=== PATIENT | female | born 1965 | race Caucasian/White ===

== ENCOUNTER 2018-05-25 14:34 | Observation (INO) | payer OTHER, SELFPAY ==
[2018-05-25] VITALS (12 sets, daily range): BP systolic 111–146; BP diastolic 63–97; PULSE 70–88; RESP 13–19; TEMP 36.4–37.1; O2SAT 94–99; BMI 28.5; BMI 28.0
--- NOTE | 2018-05-25 14:55 | EKG12_ITS ---
Test Reason : CP Blood Pressure : / mmHG Vent. Rate : 081 BPM Atrial Rate : 081 BPM P-R Int : 172 ms QRS Dur : 092 ms QT Int : 384 ms P-R-T Axes : 050 -21 053 degrees QTc Int : 446 ms Normal sinus rhythm Normal ECG Confirmed by EVA PATEL, CHRIS ([id number]), state editor ASHA ASHTON ([id number] on 05/28/2018 10:51:04 AM Referred By: RYAN/NIGEL Confirmed By:CHRIS VELASQUEZ MD
--- NOTE | 2018-05-25 15:00 | RAD_ITS ---
STUDY: X-RAY CHEST REASON FOR EXAM: Female, 52 years old. Chest pain TECHNIQUE: Single view of the chest was obtained COMPARISON: None. FINDINGS: No lung consolidation, pleural effusion or pneumothorax. Mild perihilar reticular opacities. Osseous structures demonstrate no acute abnormalities. Degenerative changes in the thoracic spine. Slightly elevated right hemidiaphragm. IMPRESSION: No evidence for focal airspace disease. Electronically Signed: Sharath Booker, at 15:59 EDT Tel , Service support , RAD/Chest 1 View (Portable)
[2018-05-25 15:06] LABS: Absolute Lymphocyte Count 2.83 X10^3/ul (0.83-4.51); Absolute Neutrophil Count 6.2 X10^3/uL (2.0-7.7); Basophil# 0.05 X10^3/uL; Basophil% 0.5 % (0-1); Eosinophil# 0.16 X10^3/uL; Eosinophils% 1.6 % (0-5); Hematocrit 44.8 % (37-47); Hemoglobin 15.4 g/dl (12.0-15.0); Lymphocyte # 2.83 X10^3/ul (4.0); Lymphocyte % 27.6 % (19-41); Mean Corp Hgb Conc 34.4 g/gl (32-36); Mean Corpuscular Hgb 29.6 pg (27.0-32.0); Mean Platelet Vol. 8.7 fl (6.2-12.0); Monocyte% 9.8 % (0-10); Neutrophil # 6.17 X10^3/uL (2.7-7.7); Neutrophil % 60.2 % (47-70); Platelet Count 379 K/mm3 (150-450); RBC Distribution Width SD 41.2 fl (35.1-43.9); Red Blood Count 5.21 M/mm3 (4.2-5.4); White Blood Count 10.2 K/mm3 (4.4-11.0)
[2018-05-25 15:13] LABS: POSITIVE COUNT NO; POSITIVE DIFFERENTIAL NO; POSITIVE MORPHOLOGY NO
[2018-05-25 15:18] LABS: D-Dimer Quantitative (DVT/PE) < 0.27 FEU/ug/m (0.27-0.49)
[2018-05-25 15:22] LABS: Anion Gap 11 (5-15); BUN 14 mg/dL (7-18); BUN/Creat Ratio 17.6 RATIO (10-20); Calcium,Total 9.1 mg/dL (8.5-10.1); Chloride 105 mmol/L (98-107); Creatinine, Serum 0.79 mg/dL (0.55-1.02); EST Glomerular Filtration Rate 81 mL/min (>60); Est Glom Filt Rate - Afr Amer 97 mL/min (>60); Estimated Creatinine Clearance 81.01 ml/min; Glucose 134 mg/dL (74-106); Potassium 3.3 mmol/L (3.5-5.1); Sodium Level 141 mmol/L (136-145)
--- NOTE | 2018-05-25 16:31 | ED.DCSUM_ITS ---
- ER Visit Summary Date of Service: 05/25/18 Chief Complaint: Chest pain History of Present Illness: The patient is a 52 F presenting with chest pain. She states she started having upper back pain last night. Around 10 AM this morning she developed chest pressure and aching sensation. She states it is worsened with deep breathing and with exertion. She has associated nausea, dyspnea, lightheadedness. The pain has been intermittent today. She has a history of hypertension, borderline diabetes, hypercholesterolemia. Her mother had an DC at age 60. She is not a smoker. No PE/DVT risk factors. Physical Examination: Vitals are stable. Patient is afebrile. Alert no acute distress. HEENT exam is unremarkable. Neck is supple. Lungs are clear and equal bilaterally. Heart is regular rate and rhythm. Abdomen is soft nontender nondistended. Extremities are unremarkable. Skin is warm and dry. No focal neurologic deficit. Remainder of exam is unremarkable. Emergency Department Course and Treatment: Patient has an aspirin allergy. EKG is sinus rate of 81 with no acute ischemic changes. Chest x-ray shows no acute process. CBC, chemistries show potassium 3.3, glucose 134. Troponin is negative. D-dimer negative. On reevaluation, patient is chest pain-free. Due to her pain between her shoulder blades, CTA chest was obtained and shows no demonstrated pulmonary embolism or arterial dissection. Will discuss with the hospitalist for observation. Disposition: Observation Impression: Chest pain This note was generated with [employer] dictation software. It may contain incorrect words, spelling, and punctuation that were not noted in review of the chart prior to signing ED Disposition - Plan for ED Patient: Chief Complaint: Chest Pain Referrals: Isabela Sidhu MD [Primary Care Provider] -
--- NOTE | 2018-05-25 16:50 | CT_ITS ---
STUDY: CTA CHEST REASON FOR EXAM: Female, 52 years old. Sternal chest pain. RADIATION DOSAGE (If Supplied By Facility): CTDIvol = ( 13.73 ) mGy, DLP = ( 496.55 ) mGycm TECHNIQUE: The examination was performed with the intravenous administration of 100 ml of Isovue 370 contrast material. Post-processing of the angiographic images was performed, with multiplanar reformation and 3D reconstruction. Individualized dose optimization techniques were used for this CT. COMPARISON: None. FINDINGS: There is suboptimal enhancement of the main pulmonary artery and right and left pulmonary arteries. Normal enhancement of the bilateral peripheral pulmonary arteries. There is no demonstrated pulmonary embolism. There is atherosclerotic calcification of the aortic arch. There is no demonstrated aortic dissection. Normal heart and pericardium. Normal mediastinum. Normal hilar regions. Normal visualized trachea and bronchi. The lungs are well expanded. Normal pulmonary parenchyma. Normal pleura. Normal chest wall structures. There are degenerative changes of thoracic spine. Limited images of the upper abdomen demonstrate fatty infiltration of the liver. CT/CTA Chest W/WO Contrast IMPRESSION: No demonstrated pulmonary embolism or arterial dissection. Atherosclerosis. Fatty infiltration of the liver. Electronically Signed: Justa Colon MD at 18:06 EDT Tel , Service support ,
--- NOTE | 2018-05-25 18:37 | PCM.HP.STD ---
Problem List (1) Chest pain Status: Acute Qualifiers: Chest pain type: other chest pain Qualified Code(s): R07.89 - Other chest pain; R07.8 - Other chest pain (2) Globus sensation Status: Acute (3) Hypokalemia Status: Acute (4) GERD (gastroesophageal reflux disease) Status: Chronic (5) Hypertension Status: Chronic Qualifiers: Hypertension type: essential hypertension Qualified Code(s): I10 - Essential (primary) hypertension (6) Hyperlipidemia Status: Acute (7) Borderline diabetes Status: Acute History of Present Illness Date of Admission: 05/25/18 Chief Complaint: chest pain, globus sensation The patient is a 52 year old F who reports past medical history of hypertension, borderline diabetes, hyperlipidemia, and family history of coronary artery disease. The patient presents with upper back pain developed last night, followed by substernal chest discomfort, radiating through to the back. She endorses use of caffeine, NSAIDs recently due to upper back pain. She reports history of severe reflux and globus symptoms in the past; reports having had 3 EGDs in the past, is on proton pump inhibitor. She denies rash, or upper extremity neurologic symptoms. She denies bowel or bladder changes, no melena or hematochezia. She reports pain is constant, worse with exertion, and with deep breath. She complains of feeling globus sensation but similar to prior esophagitis episodes. She endorses use of caffeine, chocolate, denies tobacco, peppermint, or alcohol use. She reports aspirin allergy. Emergency department evaluation: Afebrile, heart rate 82, BP 146/93, respirations 17, 99% room air Laboratories to include CBC, BMP acceptable (potassium 3.3, random glucose 134) Troponin is negative EKG is normal D-dimer is negative CTA of chest reveals no demonstrated PE or arterial dissection. The patient is seen and examined. Is currently pain-free. Past Medical History Past Medical History (Chronic Problems): Chronic Problems (Last Updated 05/25/18 @ 19:19 by Melanie Almaguer MD) GERD (gastroesophageal reflux disease) (Chronic) Hypertension (Chronic) Medical History: Medical History (Last Updated 05/25/18 @ 19:19 by Melanie Almaguer MD) Borderline diabetes R73.03 Allergies acetaminophen [From Vicodin] Allergy (Verified 05/25/18 14:37) Swelling aspirin Allergy (Verified 05/25/18 14:37) Swelling erythromycin base Allergy (Verified 05/25/18 14:37) Swelling hydrocodone [From Vicodin] Allergy (Verified 05/25/18 14:37) Swelling povidone-iodine [From Betadine] Allergy (Verified 05/25/18 14:37) Rash soap [From Betadine] Allergy (Verified 05/25/18 14:37) Rash TOPICALS Allergy (Uncoded 05/25/18 14:37) Rash Surgical History: noncontributory Psychiatric History: No pertinent psych hx 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 Smoking Status: Never smoker - *Family History Maternal History Items: Heart Disease Review of Systems HEENT: Reports: Difficulty Swallowing Cardiovascular: Reports: Chest Pain, Chest Pressure Gastrointestinal: Reports: - - globus VTE Information - Inpt Only VTE Present on Admission: No VTE Mechan Device Prophylaxis: SCD's VTE Pharm Prophylaxis ordered?: No Reason prophylaxis not ordered:: Treatment Not Indicated Patient Problems: Active and Suspected Problems (Last Updated 05/25/18 @ 19:19 by Melanie Almaguer MD) Chest pain (Acute) Globus sensation (Acute) Hyperlipidemia (Acute) Borderline diabetes (Acute) Hypokalemia (Acute) Subjective: Pain-free, no acute distress Objective: In no acute distress, pain-free - Physical Exam General: Alert, Oriented x3, Cooperative HEENT: Atraumatic, PERRLA, EOMI Oral: Moist Mucosa Neck: No JVD, Negative Carotid Bruits Lungs: Clear to auscultation Cardiovascular: Regular rate, Regular Rhythm, Normal S1, Normal S2, No murmurs Abdomen: Bowel Sounds Present, Soft, - - Tender epigastrium, no tenderness right upper quadrant Extremities: No edema Skin: No rashes Musculoskeletal: Tenderness - Mild bilateral upper back, parathoracic Neurological: - - Focal Psych/Mental Status: Anxious Vital Signs Temp Pulse Resp BP Pulse Ox 98.7 F 79 13 111/91 H 95 05/25/18 16:24 05/25/18 17:11 05/25/18 17:11 05/25/18 17:11 05/25/18 17:11 Oxygen Flow Rate (L/min) 2 Oxygen Delivery Method Room Air Weight: 182 lb 1.629 oz Body Mass Index (BMI) 28.5 Laboratory Tests Past 24 Hrs 05/25/18 05/25/18 05/25/18 14:55 14:55 14:55 WBC 10.2 RBC 5.21 Hgb 15.4 H Hct 44.8 MCV 86.0 MCH 29.6 MCHC 34.4 RDW 13.0 RDW Differential 41.2 Plt Count 379 MPV 8.7 Immature Gran % (Auto) 0.300 Neut % (Auto) 60.2 Lymph % (Auto) 27.6 [place] % (Auto) 9.8 Eos % (Auto) 1.6 Baso % (Auto) 0.5 Absolute Neuts (auto) 6.2 Absolute Lymphs (auto) 2.83 Total Counted Not Reportable D-Dimer Quant (PE/DVT) < 0.27 L Sodium 141 Potassium 3.3 L Chloride 105 Carbon Dioxide 25.0 Anion Gap 11 BUN 14 Creatinine 0.79 Estim Creat Clear Calc 81.01 Est GFR (MDRD) Af Amer 97 Est GFR (MDRD) Non-Af 81 BUN/Creatinine Ratio 17.6 Glucose 134 H Calcium 9.1 Troponin I < 0.015 Assessment/Plan All Active Problems (Last Updated 05/25/18 @ 19:19 by Melanie Almaguer MD) Chest pain (Acute) Globus sensation (Acute) Hyperlipidemia (Acute) Borderline diabetes (Acute) Hypokalemia (Acute) 82-year-old patient with past medical history of borderline diabetes, hypertension, hyperlipidemia, family history of coronary disease, and aspirin allergy, presents with midsternal constant chest discomfort, radiating to the back, worsened with exertion, and breathing. She is pain-free in ED with a negative evaluation to include troponin, d-dimer, normal EKG and CTA of chest. She reports history of 3 EGDs and was told had ulcerations esophagitis in the past. Primarily her symptoms are globus in nature. She reports 3 prior EGDs and is on PPI twice daily. She endorses use of NSAIDs, caffeine, chocolate, non-smoker, nondrinker. There is no evidence of thromboembolic phenomena, dissection, thoracic radiculopathy, or dermatomal rash on examination. Has no right upper quadrant pain. Denies melena, hematochezia, or urinary symptoms. Heart score = 3 1. Chest pain, with typical and atypical features 2. Globus sensation 3. Hypertension 4. Hypokalemia Chronic issues: Hypertension Borderline diabetes Hyperlipidemia GERD/esophagitis Aspirin allergy Plan: Observe PCU Telemetry monitoring Serial cardiac biomarkers Clear diet Aggressive treatment of GERD -IV PPI drip, Carafate Potassium supplemented Medical management with oxygen, as needed nitrates, started metoprolol 12.5 mg twice daily for blood pressure --hold SBP less than 100, heart rate less than 60 N.p.o. post midnight Lexiscan in AM lipid panel in AM Code Visit OBSV E&M: [id number] Initial observation care L2
--- NOTE | 2018-05-25 18:42 | HP.PCM_ITS ---
Problem List (1) Chest pain Status: Acute Qualifiers: Chest pain type: other chest pain Qualified Code(s): R07.89 - Other chest pain; R07.8 - Other chest pain (2) Globus sensation Status: Acute (3) Hypokalemia Status: Acute (4) GERD (gastroesophageal reflux disease) Status: Chronic (5) Hypertension Status: Chronic Qualifiers: Hypertension type: essential hypertension Qualified Code(s): I10 - Essential (primary) hypertension (6) Hyperlipidemia Status: Acute (7) Borderline diabetes Status: Acute History of Present Illness Date of Admission: 05/25/18 Chief Complaint: chest pain, globus sensation The patient is a 52 year old F who reports past medical history of hypertension , borderline diabetes, hyperlipidemia, and family history of coronary artery disease. The patient presents with upper back pain developed last night, followed by substernal chest discomfort, radiating through to the back. She endorses use of caffeine, NSAIDs recently due to upper back pain. She reports history of severe reflux and globus symptoms in the past; reports having had 3 EGDs in the past, is on proton pump inhibitor. She denies rash, or upper extremity neurologic symptoms. She denies bowel or bladder changes, no melena or hematochezia. She reports pain is constant, worse with exertion, and with deep breath. She complains of feeling globus sensation but similar to prior esophagitis episodes. She endorses use of caffeine, chocolate, denies tobacco, peppermint, or alcohol use. She reports aspirin allergy. Emergency department evaluation: Afebrile, heart rate 82, BP 146/93, respirations 17, 99% room air Laboratories to include CBC, BMP acceptable (potassium 3.3, random glucose 134) Troponin is negative EKG is normal D-dimer is negative CTA of chest reveals no demonstrated PE or arterial dissection. The patient is seen and examined. Is currently pain-free. Past Medical History Past Medical History (Chronic Problems): Chronic Problems (Last Updated 05/25/18 @ 19:19 by Melanie Almaguer MD) GERD (gastroesophageal reflux disease) (Chronic) Hypertension (Chronic) Medical History: Medical History (Last Updated 05/25/18 @ 19:19 by Melanie Almaguer MD) Borderline diabetes R73.03 Allergies acetaminophen [From Vicodin] Allergy (Verified 05/25/18 14:37) Swelling aspirin Allergy (Verified 05/25/18 14:37) Swelling erythromycin base Allergy (Verified 05/25/18 14:37) Swelling hydrocodone [From Vicodin] Allergy (Verified 05/25/18 14:37) Swelling povidone-iodine [From Betadine] Allergy (Verified 05/25/18 14:37) Rash soap [From Betadine] Allergy (Verified 05/25/18 14:37) Rash TOPICALS Allergy (Uncoded 05/25/18 14:37) Rash Surgical History: noncontributory Psychiatric History: No pertinent psych hx 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 Smoking Status: Never smoker - *Family History Maternal History Items: Heart Disease Review of Systems HEENT: Reports: Difficulty Swallowing Cardiovascular: Reports: Chest Pain, Chest Pressure Gastrointestinal: Reports: - - globus VTE Information - Inpt Only VTE Present on Admission: No VTE Mechan Device Prophylaxis: SCD's VTE Pharm Prophylaxis ordered?: No Reason prophylaxis not ordered:: Treatment Not Indicated Patient Problems: Active and Suspected Problems (Last Updated 05/25/18 @ 19:19 by eMlanie Almaguer MD) Chest pain (Acute) Globus sensation (Acute) Hyperlipidemia (Acute) Borderline diabetes (Acute) Hypokalemia (Acute) Subjective: Pain-free, no acute distress Objective: In no acute distress, pain-free - Physical Exam General: Alert, Oriented x3, Cooperative HEENT: Atraumatic, PERRLA, EOMI Oral: Moist Mucosa Neck: No JVD, Negative Carotid Bruits Lungs: Clear to auscultation Cardiovascular: Regular rate, Regular Rhythm, Normal S1, Normal S2, No murmurs Abdomen: Bowel Sounds Present, Soft, - - Tender epigastrium, no tenderness right upper quadrant Extremities: No edema Skin: No rashes Musculoskeletal: Tenderness - Mild bilateral upper back, parathoracic Neurological: - - Focal Psych/Mental Status: Anxious Vital Signs Temp Pulse Resp BP Pulse Ox 98.7 F 79 13 111/91 H 95 05/25/18 16:24 05/25/18 17:11 05/25/18 17:11 05/25/18 17:11 05/25/18 17:11 Oxygen Flow Rate (L/min) 2 Oxygen Delivery Method Room Air Weight: 182 lb 1.629 oz Body Mass Index (BMI) 28.5 Laboratory Tests Past 24 Hrs 05/25/18 05/25/18 05/25/18 14:55 14:55 14:55 WBC 10.2 RBC 5.21 Hgb 15.4 H Hct 44.8 MCV 86.0 MCH 29.6 MCHC 34.4 RDW 13.0 RDW Differential 41.2 Plt Count 379 MPV 8.7 Immature Gran % (Auto) 0.300 Neut % (Auto) 60.2 Lymph % (Auto) 27.6 [place] % (Auto) 9.8 Eos % (Auto) 1.6 Baso % (Auto) 0.5 Absolute Neuts (auto) 6.2 Absolute Lymphs (auto) 2.83 Total Counted Not Reportable D-Dimer Quant (PE/DVT) < 0.27 L Sodium 141 Potassium 3.3 L Chloride 105 Carbon Dioxide 25.0 Anion Gap 11 BUN 14 Creatinine 0.79 Estim Creat Clear Calc 81.01 Est GFR (MDRD) Af Amer 97 Est GFR (MDRD) Non-Af 81 BUN/Creatinine Ratio 17.6 Glucose 134 H Calcium 9.1 Troponin I < 0.015 Assessment/Plan All Active Problems (Last Updated 05/25/18 @ 19:19 by Melanie Almaguer MD) Chest pain (Acute) Globus sensation (Acute) Hyperlipidemia (Acute) Borderline diabetes (Acute) Hypokalemia (Acute) 82-year-old patient with past medical history of borderline diabetes, hypertension, hyperlipidemia, family history of coronary disease, and aspirin allergy, presents with midsternal constant chest discomfort, radiating to the back, worsened with exertion, and breathing. She is pain-free in ED with a negative evaluation to include troponin, d-dimer, normal EKG and CTA of chest. She reports history of 3 EGDs and was told had ulcerations esophagitis in the past. Primarily her symptoms are globus in nature. She reports 3 prior EGDs and is on PPI twice daily. She endorses use of NSAIDs, caffeine, chocolate, non -smoker, nondrinker. There is no evidence of thromboembolic phenomena, dissection, thoracic radiculopathy, or dermatomal rash on examination. Has no right upper quadrant pain. Denies melena, hematochezia, or urinary symptoms. Heart score = 3 1. Chest pain, with typical and atypical features 2. Globus sensation 3. Hypertension 4. Hypokalemia Chronic issues: Hypertension Borderline diabetes Hyperlipidemia GERD/esophagitis Aspirin allergy Plan: Observe PCU Telemetry monitoring Serial cardiac biomarkers Clear diet Aggressive treatment of GERD -IV PPI drip, Carafate Potassium supplemented Medical management with oxygen, as needed nitrates, started metoprolol 12.5 mg twice daily for blood pressure --hold SBP less than 100, heart rate less than 60 N.p.o. post midnight Lexiscan in AM lipid panel in AM Code Visit OBSV E&M: [id number] Initial observation care L2
--- NOTE | 2018-05-25 19:18 | NURSING ---
Called ED cut plug packerKindra ASHER at this time to confirm Pt okay to come to PCU.
--- NOTE | 2018-05-25 19:50 | EKG12_ITS ---
Test Reason : ADM EKG Blood Pressure : / mmHG Vent. Rate : 075 BPM Atrial Rate : 075 BPM P-R Int : 186 ms QRS Dur : 094 ms QT Int : 406 ms P-R-T Axes : 046 -28 055 degrees QTc Int : 453 ms Normal sinus rhythm Normal ECG Confirmed by EVA PATEL, CHRIS ([id number]), editor school photograph ASHA ASHTON ([id number]) on 05/28/2018 11:30:20 AM Referred By: VINCENT Confirmed By:CHRIS VELASQUEZ MD
[2018-05-25] MEDS: Mag Hydrox/Al Hydrox/Simeth 30 ML UDC PO (20:47)
[2018-05-25] MEDS: 0.9% NaCl Peripheral Flush Adult/Peds IV (21:21)
[2018-05-25] MEDS: Sucralfate 1 GM Tablet PO (22:26)
[2018-05-25] MEDS: Famotidine 20 MG Tablet PO (22:26)
[2018-05-25] MEDS: Metoprolol Tartrate 25 MG Tablet 12.5 MG PO (22:30)
[2018-05-25 23:01] LABS: Bedside Glucose 169 mg/dL (70-110)
[2018-05-26 02:03] VITALS: BP 113/69; PULSE 66; RESP 16; TEMP 36.6; O2SAT 95
[2018-05-26 02:27] LABS: Absolute Lymphocyte Count 3.22 X10^3/ul (0.83-4.51); Absolute Neutrophil Count 4.3 X10^3/uL (2.0-7.7); Basophil# 0.05 X10^3/uL; Basophil% 0.6 % (0-1); Eosinophil# 0.21 X10^3/uL; Eosinophils% 2.4 % (0-5); Hematocrit 43.3 % (37-47); Hemoglobin 14.9 g/dl (12.0-15.0); Lymphocyte # 3.22 X10^3/ul (4.0); Lymphocyte % 36.5 % (19-41); Mean Corp Hgb Conc 34.4 g/gl (32-36); Mean Corpuscular Hgb 29.6 pg (27.0-32.0); Mean Corpuscular Volume 85.9 fL (81-99); Mean Platelet Vol. 8.5 fl (6.2-12.0); Monocyte# 1.01 X10^3/uL; Monocyte% 11.5 % (0-10); Neutrophil # 4.27 X10^3/uL (2.7-7.7); Neutrophil % 48.4 % (47-70); Platelet Count 431 K/mm3 (150-450); RBC Distribution Width CV 13.2 % (11.6-14.6); RBC Distribution Width SD 40.7 fl (35.1-43.9); Red Blood Count 5.04 M/mm3 (4.2-5.4); White Blood Count 8.8 K/mm3 (4.4-11.0)
[2018-05-26 02:28] LABS: POSITIVE COUNT NO; POSITIVE DIFFERENTIAL NO; POSITIVE MORPHOLOGY NO
[2018-05-26 03:06] VITALS: PULSE 65
[2018-05-26 03:31] LABS: International Normalized Ratio 1.1; Prothrombin Time (Protime)PT. 13.9 SECONDS (11.7-14.9)
[2018-05-26 03:32] LABS: Anion Gap 11 (5-15); BUN 14 mg/dL (7-18); BUN/Creat Ratio 18.9 RATIO (10-20); Calcium,Total 9.1 mg/dL (8.5-10.1); Chloride 104 mmol/L (98-107); Cholesterol 172 mg/dL (200); Creatinine, Serum 0.74 mg/dL (0.55-1.02); EST Glomerular Filtration Rate 87 mL/min (>60); Est Glom Filt Rate - Afr Amer 106 mL/min (>60); Estimated Creatinine Clearance 86.48 ml/min; Glucose 114 mg/dL (74-106); High Density Lipoprotein 28 mg/dL; Partial Thromboplast Time 28.8 Seconds (24.1-36.2); Potassium 3.6 mmol/L (3.5-5.1); Sodium Level 141 mmol/L (136-145); Triglycerides 222 mg/dL; Very Low Density Lipoprotein 44 mg/dL (5-40)
--- NOTE | 2018-05-26 05:55 | EKG12_ITS ---
Test Reason : AM EKG Blood Pressure : / mmHG Vent. Rate : 065 BPM Atrial Rate : 065 BPM P-R Int : 202 ms QRS Dur : 096 ms QT Int : 406 ms P-R-T Axes : 048 -22 052 degrees QTc Int : 422 ms Normal sinus rhythm Normal ECG Confirmed by EVA PATEL, CHRIS ([id number]), food editor ASHA ASHTON ([id number]) on 05/28/2018 11:26:48 AM Referred By: DR KAUR Confirmed By:CHRIS VELASQUEZ MD
[2018-05-26 06:10] VITALS: BP 102/70; PULSE 68; RESP 14; TEMP 36.6; O2SAT 93
[2018-05-26] MEDS: Sucralfate 1 GM Tablet PO ×2 (06:12→10:57)
[2018-05-26 06:45] LABS: Bedside Glucose 115 mg/dL (70-110)
[2018-05-26 09:23] VITALS: BP 103/60; PULSE 87; RESP 16; TEMP 36.8; O2SAT 93
--- NOTE | 2018-05-26 09:33 | STRESSREP ---
Stress Test Report Date: 05/26/2018 Procedure: Exercise tolerance test/imaging study Indications: Chest pain Consent: Per the patient Procedure: The patient exercised on a Elmer protocol for 7 minutes and 10 seconds completing Stage II and 1 minute and 10 seconds of Stage III achieving a peak heart rate of 117 bpm (69 % predicted maximal heart rate) with a peak blood pressure 158/74 mmHg and a peak MET capacity of 8 METs. The baseline ECG demonstrated normal sinus rhythm. The peak exercise ECG demonstrated somatic/motion artifact with no obvious ECG changes. [There were no cardiac dysrhythmias pretest, during exercise, or recovery]. The functional capacity was considered average. There was [no complaint of chest discomfort during exercise or recovery]. The examination was discontinued secondary to leg discomfort. Impression: 1. Technically adequate (percent predicted maximal heart rate greater than 85%) exercise tolerance test 2. Peak exercise ECG demonstrated somatic/motion artifact with no obvious ECG changes 3. There were no cardiac dysrhythmias pretest, during exercise, or recovery. 4. Pharmacologic (Regadenoson) evaluation pending Procedure: Pharmacologic stress nuclear imaging study Consent: Per the patient Procedure: The baseline ECG demonstrated normal sinus rhythm. The peak pharmacologic ECG demonstrated no obvious ECG changes. [There were no cardiac dysrhythmias pretest, during pharmacologic infusion, or recovery]. The patient noted chest discomfort during the evaluation with spontaneous resolution in recovery. The examination was discontinued secondary to completion of protocol. Impression: 1. Pharmacologic (Regadenoson) evaluation 2. Peak pharmacologic ECG with no obvious ECG changes. 3. There were no cardiac dysrhythmias pretest, during pharmacologic infusion, or recovery 4. Nuclear images pending Myocardial perfusion imaging study: Technique: The patient was injected with 12 millicuries of technetium 99m Cardiolite and subsequently rest SPECT Cardiolite nuclear imaging was obtained in the horizontal long, vertical long, and short axis views. The patient exercised on a Elmer protocol for 7 minutes and 10 seconds completing Stage II and 1 minute and 10 seconds of Stage III achieving a peak heart rate of 117 bpm (69 % predicted maximal heart rate) with a peak blood pressure 158/74 mmHg and a peak MET capacity of 8 METs. The patient underwent pharmacologic (Regadenoson) evaluation with a peak heart rate of 113 beats per minute (67 predicted maximal heart rate) and a peak blood pressure of 128/80 mmHg. The patient was injected with 36 millicuries of technetium 99m Cardiolite and subsequently stress SPECT Cardiolite nuclear imaging was obtained in the horizontal long, vertical long, and short axis views. A gated Cardiolite study at peak stress was obtained. Interpretation: Rest and stress SPECT Cardiolite nuclear imaging status post realignment, normalization, and attenuation correction demonstrate at rest a small area of subtle diminished tracer uptake near the apical segments which appears to improve and/or normalize following stress. [There is end systolic thickening and brightening]. [The gated Cardiolite study demonstrates myocardial thickening and inward wall motion]. The reported LVEF is 81%. Impression: 1. Rest and stress SPECT currently nuclear imaging demonstrate a small area of subtle diminished tracer uptake near the apical segments at rest which appear to improve and/or normalize following stress appearing compatible with shifting soft tissue attenuation/artifact with no myocardial perfusion changes consider diagnostic for associated stress-induced myocardial ischemia or previous myocardial injury/infarction. 2. The gated Cardiolite study reports an LVEF of 81 %. This note was generated with [employer] software. It may contain incorrect words, spelling, and punctuation that were not noted in checking the note before signing.
[2018-05-26] MEDS: Famotidine 20 MG Tablet PO (09:35)
--- NOTE | 2018-05-26 10:04 | DCINST_ITS ---
- Discharge Diagnoses Current Active Problems: Current Active and Chronic Problems (Last Updated 05/25/18 @ 19:19 by Melanie Almaguer MD) Chest pain (Acute) Globus sensation (Acute) GERD (gastroesophageal reflux disease) (Chronic) Hypertension (Chronic) Hyperlipidemia (Acute) Borderline diabetes (Acute) Hypokalemia (Acute) You will use the following diet at home:: Cardiac Your food should be the consistency of: Regular Discharge Activity: Return to Normal Activity Weight Bearing Status: Full weight bearing Call your doctor if you observe: Fever of 101 or Higher, Shortness of breath, Dizziness, Fainting spells, Chest pain, Increased palpitations (irregular heartbeat), Uncontrolled pain Instructions: Discharge Instructions for Gastroesophageal Reflux Disease (GERD) Allergies/Adverse Reactions: Allergies acetaminophen [From Vicodin] Allergy (Verified 05/25/18 14:37) Swelling aspirin Allergy (Verified 05/25/18 14:37) Swelling erythromycin base Allergy (Verified 05/25/18 14:37) Swelling hydrocodone [From Vicodin] Allergy (Verified 05/25/18 14:37) Swelling povidone-iodine [From Betadine] Allergy (Verified 05/25/18 20:06) Swelling soap [From Betadine] Allergy (Verified 05/25/18 20:06) Swelling TOPICALS Allergy (Uncoded 05/25/18 14:37) Rash Medications to take at Discharge Fenofibrate [Tricor] 145 mg PO DAILY 05/25/18 Fluoxetine [Prozac] 20 mg PO QHS 05/25/18 Hydrochlorothiazide [Hctz] 25 mg PO DAILY 05/25/18 Loratadine [Claritin] 10 mg PO QHS 05/25/18 Omeprazole [Prilosec] 20 mg PO BID 05/25/18 Simvastatin 5 mg PO QHS 05/25/18 Sucralfate [Carafate] 1 gm PO 4X/DAY #90 udc 05/26/18 The following prescriptions were given: Sucralfate [Carafate] 1 gm PO 4X/DAY #90 udc Primary Care Physician: Isabela Sidhu MD [Primary Care Provider] - Please follow up with your Primary Care Physician in: 2-4 weeks. Test Results: Test results from this visit will be discussed in further detail at your follow- up appointment, if applicable.
[2018-05-26 11:06] LABS: Bedside Glucose 135 mg/dL (70-110)
[2018-05-26 11:39] VITALS: BP 119/71; PULSE 78; RESP 18; TEMP 37.1; O2SAT 95
[2018-05-26 11:42] VITALS: BP 119/71; PULSE 78
[2018-05-26] MEDS: Metoprolol Tartrate 25 MG Tablet 12.5 MG PO (11:42)
--- NOTE | 2018-05-26 15:38 | PCM.DC.SUM ---
Discharge Date and Diagnosis Date of Admission: 05/25/18 Date of Discharge: 05/26/18 - Primary Discharge Diagnosis Chest pain, ACS ruled out, attributed to GERD - Secondary Discharge Diagnosis Chronic Problems (Last Updated 05/25/18 @ 19:19 by Melanie Almaguer MD) GERD (gastroesophageal reflux disease) (Chronic) Hypertension (Chronic) Hospital Course and Treatment Imaging Results: Clinical Impression(s) from Imaging Studies Chest X-Ray 05/25/18 15:00 Chest CTA 05/25/18 16:50 IMPRESSION: No demonstrated pulmonary embolism or arterial dissection. Atherosclerosis. Fatty infiltration of the liver. Electronically Signed: Justa Colon MD at 18:06 EDT Tel , Service support , Operations: None Procedures: EKG, Stress test Summary of Care Provided: Patient seen and examined on the day of discharge and appeared to be stable to be discharged home. She denies any more chest pain. Her vital signs are stable. - Physical Exam General: Alert, Oriented x3, Cooperative, No apparent distress. HEENT: Atraumatic, PERRLA, EOMI. Neck: Supple, No JVD, Negative Carotid Bruits, Trachea Midline, Thyroid Normal. Lungs: Clear to auscultation, Normal air movement, No rhonchi, No wheeze, No rales. Cardiovascular: Regular rate, Regular Rhythm, Normal S1, Normal S2, PMI Normal. Abdomen: Bowel Sounds Present, Soft, Non Tender, Non-Distended, No Hepato-splenomegaly. Extremities: No clubbing, No cyanosis, No edema Skin: No rashes, No breakdown Neurological: Neuro grossly intact Vital Signs are stable. Hospital course: The patient is a 52 year old F admitted because of chest pain for evaluation. She has significant history of GERD and gastritis and she had upper EGD 3 times in the last few years and she was told that she has severe GERD and gastric erosions. Her EKG revealed no evidence of acute ischemic changes. Troponin was negative ?3. Chest x-ray showed no acute findings. CTA chest showed no evidence for acute PE or dissection. She underwent nuclear stress test that as negative without evidence of stress-induced myocardial ischemia. ACS is ruled out. Her symptoms attributed to GERD. Patient has been on omeprazole, started on Carafate. Patient discharged home in a stable medical condition, continued on Prilosec, started on Carafate 4 times daily, continued on her chronic home medication without any changes, recommended follow-up with PCP in 2-4 weeks and recommended to keep following up with GI as outpatient. Discharge Activity: Return to Normal Activity Weight Bearing Status: Full weight bearing Call your doctor if you observe: Fever of 101 or Higher, Shortness of breath, Dizziness, Fainting spells, Chest pain, Increased palpitations (irregular heartbeat), Uncontrolled pain Home Medications: Medications to take at Discharge Fenofibrate [Tricor] 145 mg PO DAILY 05/25/18 Fluoxetine [Prozac] 20 mg PO QHS 05/25/18 Hydrochlorothiazide [Hctz] 25 mg PO DAILY 05/25/18 Loratadine [Claritin] 10 mg PO QHS 05/25/18 Omeprazole [Prilosec] 20 mg PO BID 05/25/18 Simvastatin 5 mg PO QHS 05/25/18 Sucralfate [Carafate] 1 gm PO 4X/DAY #90 udc 05/26/18 Following Prescrptions Were Given to Patient: Sucralfate [Carafate] 1 gm PO 4X/DAY #90 udc Primary Care Physician: Isabela Sidhu MD [Primary Care Provider] - Please follow up with your Primary Care Physician in: 2-4 weeks. Patient Instructions: Discharge Instructions for Gastroesophageal Reflux Disease (GERD) Disposition: Home Minutes spent on discharge:: 25 Patient Condition:: Stable Medical Necessity - Tobacco Use Smoking Status: Never smoker Meaningful Use Info Meaningful Use Diagnoses (Choose all that apply): None applicable Code Visit OBSV E&M: 80613 Observation care discharge
--- NOTE | 2018-05-26 15:42 | DS.PCM_ITS ---
Discharge Date and Diagnosis Date of Admission: 05/25/18 Date of Discharge: 05/26/18 - Primary Discharge Diagnosis Chest pain, ACS ruled out, attributed to GERD - Secondary Discharge Diagnosis Chronic Problems (Last Updated 05/25/18 @ 19:19 by Melanie Almaguer MD) GERD (gastroesophageal reflux disease) (Chronic) Hypertension (Chronic) Hospital Course and Treatment Imaging Results: Clinical Impression(s) from Imaging Studies Chest X-Ray 05/25/18 15:00 Chest CTA 05/25/18 16:50 IMPRESSION: No demonstrated pulmonary embolism or arterial dissection. Atherosclerosis. Fatty infiltration of the liver. Electronically Signed: Justa Colon MD at 18:06 EDT Tel , Service support , Operations: None Procedures: EKG, Stress test Summary of Care Provided: Patient seen and examined on the day of discharge and appeared to be stable to be discharged home. She denies any more chest pain. Her vital signs are stable. - Physical Exam General: Alert, Oriented x3, Cooperative, No apparent distress. HEENT: Atraumatic, PERRLA, EOMI. Neck: Supple, No JVD, Negative Carotid Bruits, Trachea Midline, Thyroid Normal. Lungs: Clear to auscultation, Normal air movement, No rhonchi, No wheeze, No rales. Cardiovascular: Regular rate, Regular Rhythm, Normal S1, Normal S2, PMI Normal. Abdomen: Bowel Sounds Present, Soft, Non Tender, Non-Distended, No Hepato- splenomegaly. Extremities: No clubbing, No cyanosis, No edema Skin: No rashes, No breakdown Neurological: Neuro grossly intact Vital Signs are stable. Hospital course: The patient is a 52 year old F admitted because of chest pain for evaluation. She has significant history of GERD and gastritis and she had upper EGD 3 times in the last few years and she was told that she has severe GERD and gastric erosions. Her EKG revealed no evidence of acute ischemic changes. Troponin was negative ?3. Chest x-ray showed no acute findings. CTA chest showed no evidence for acute PE or dissection. She underwent nuclear stress test that as negative without evidence of stress-induced myocardial ischemia. ACS is ruled out. Her symptoms attributed to GERD. Patient has been on omeprazole, started on Carafate. Patient discharged home in a stable medical condition, continued on Prilosec, started on Carafate 4 times daily, continued on her chronic home medication without any changes, recommended follow-up with PCP in 2-4 weeks and recommended to keep following up with GI as outpatient. Discharge Activity: Return to Normal Activity Weight Bearing Status: Full weight bearing Call your doctor if you observe: Fever of 101 or Higher, Shortness of breath, Dizziness, Fainting spells, Chest pain, Increased palpitations (irregular heartbeat), Uncontrolled pain Home Medications: Medications to take at Discharge Fenofibrate [Tricor] 145 mg PO DAILY 05/25/18 Fluoxetine [Prozac] 20 mg PO QHS 05/25/18 Hydrochlorothiazide [Hctz] 25 mg PO DAILY 05/25/18 Loratadine [Claritin] 10 mg PO QHS 05/25/18 Omeprazole [Prilosec] 20 mg PO BID 05/25/18 Simvastatin 5 mg PO QHS 05/25/18 Sucralfate [Carafate] 1 gm PO 4X/DAY #90 udc 05/26/18 Following Prescrptions Were Given to Patient: Sucralfate [Carafate] 1 gm PO 4X/DAY #90 udc Primary Care Physician: Isabela Sidhu MD [Primary Care Provider] - Please follow up with your Primary Care Physician in: 2-4 weeks. Patient Instructions: Discharge Instructions for Gastroesophageal Reflux Disease (GERD) Disposition: Home Minutes spent on discharge:: 25 Patient Condition:: Stable Medical Necessity - Tobacco Use Smoking Status: Never smoker Meaningful Use Info Meaningful Use Diagnoses (Choose all that apply): None applicable Code Visit OBSV E&M: 23021 Observation care discharge
== END 2018-05-26 10:04 | disposition home or self-care (01) ==
LOC: ED 16:46 → PCU 19:20
PROVIDERS: Admitting Provider Internal Medicine; Emergency Provider Emergency Medicine; Family Provider Internal Medicine; PCP Internal Medicine; Visit Provider Hospitalist
DX: K21.9 Gastro-esophageal reflux disease without esophagitis (principal); I10 Essential (primary) hypertension; Z82.49 Family history of ischemic heart disease and other diseases of the circulatory system; R73.03 Prediabetes; E87.6 Hypokalemia; F45.8 Other somatoform disorders; E78.5 Hyperlipidemia, unspecified; Z79.899 Other long term (current) drug therapy
CPT/HCPCS: 36415; 71045; 71275; 78452; 80048; 80061; 82962; 84484; 85025; 85379; 85610; 85730; 93005; 93017; 96365; 96366; 99284; A9500; Q9967; A4216; J2785

== ENCOUNTER → 2025-05-18 | Outpatient (CLI) | payer BC, SELFPAY ==
--- NOTE | 2025-05-18 13:32 | ECHOD_ITS ---
Reason For Study Reason For Study: Murmur Procedure This was a 2D Doppler, Color Flow transthoracic echocardiogram. Exam performed in department. Left Ventricle Normal LV size. Left ventricular systolic function is normal. The left ventricular ejection fraction is 65 %. Stage 1 diastolic dysfunction. No regional wall motion abnormalities noted. Right Ventricle Normal RV size. Normal systolic function. Atria Normal left atrium. Normal right atrium. Mitral Valve Normal mitral valve. Tricuspid Valve Normal tricuspid valve. Aortic Valve Normal aortic valve. Pulmonic Valve Normal pulmonic valve. Great Vessels Normal aortic root. The pulmonary artery is normal size. Inferior vena cava collapse with respiration. Pericardium/Pleural No pericardial effusion. MMode/2D Measurements & Calculations LVIDd: 3.7 cm IVSd: 1.1 cm Ao root diam: 3.2 cm LVIDs: 2.3 cm LVPWd: 0.73 cm FS: 37.1 % asc Aorta Diam: 3.1 cm LAV(MOD-bp): 27.1 ml LVAd ap4: 20.0 cm2 LAV(MOD-bp) Indexed: 14.9 ml/m2 LVLd ap4: 6.9 cm LAV(MOD-sp2): 31.5 ml EDV(MOD-sp4): 47.3 ml LAV(MOD-sp4): 22.5 ml EDV(sp4-el): 49.3 ml LVAs ap4: 10.5 cm2 LVLs ap4: 5.7 cm ESV(MOD-sp4): 16.9 ml ESV(sp4-el): 16.4 ml EF(MOD-sp4): 64.3 % EF(sp4-el): 66.7 % SV(MOD-sp4): 30.4 ml SV(sp4-el): 32.9 ml LA A4 area: 10.6 cm2 SI(MOD-sp4): 16.7 ml/m2 LA dimension(2D): 2.6 cm RA A4 area: 8.1 cm2 Time Measurements MV dec time: 0.25 sec Doppler Measurements & Calculations MV E max gennaro: 68.9 cm/sec Lat Peak E' Gennaro: 10.5 cm/sec Med Peak E' Gennaro: 8.4 cm/sec MV A max gennaro: 101.9 cm/sec E/E' lat: 6.5 E/E' med: 8.2 MV E/A: 0.68 MV V2 max: 104.8 cm/sec MV P1/2t max gennaro: 67.0 cm/sec Ao V2 max: 132.2 cm/sec MV max P.4 mmHg MV P1/2t: 72.8 msec Ao max P.0 mmHg MV V2 mean: 60.1 cm/sec Ao V2 mean: 90.0 cm/sec MV mean P.7 mmHg MV dec slope: 269.6 cm/sec2 Ao mean P.7 mmHg MV V2 VTI: 20.2 cm MVA(P1/2t): 3.0 cm2 Ao V2 VTI: 24.1 cm AV (velocity ratio): 0.91 LV V1 max: 121.0 cm/sec PA V2 max: 132.2 cm/sec TR max gennaro: 178.7 cm/sec LV V1 max P.9 mmHg PA V2 mean: 94.8 cm/sec TR max P.8 mmHg LV V1 mean P.1 mmHg LV V1 mean: 82.4 cm/sec LV V1 VTI: 22.0 cm ECHO/Echo Complete Interpretation Summary Normal LV size. Left ventricular systolic function is normal. The left ventricular ejection fraction is 65 %. Stage 1 diastolic dysfunction. Ordering Physician: Anatoly Vaca Referring Physician: Anatoly Vaca Performed By: [facility]
== END | disposition home or self-care (01) ==
PROVIDERS: PCP Student in an Organized Health Care Education/Training Program; Referring Provider Internal Medicine Cardiovascular Disease; Visit Provider Internal Medicine Cardiovascular Disease
DX: R01.1 Cardiac murmur, unspecified (principal)
CPT/HCPCS: 93306